=== PATIENT | female | born 1980 | race African-American/Black ===

== ENCOUNTER 2016-11-10 06:57 | Inpatient (IN) | payer MEDICAID ==
[2016-11-10] MEDS: MAGNESIUM SULFATE 40 GM PREMIX 1,000 ML IV SCH (07:40)
[2016-11-10] MEDS: LACTATED RINGER'S 1000 ML INJ 1,000 ML IV SCH ×2 (07:40→21:00)
--- NOTE | 2016-11-10 07:40 | PD ---
HPI Chief Complaint Back pain radiating to her upper thighs Date Seen: Nov 10, 2016 Time Seen: 07:34 Travel History International Travel<30 Days: No Contact w/Intl Traveler<30Days: No Known Affected Area: No History of Present Illness HPI 36-year-old female [id number] AB 3 comes in today complaining of back pain that radiated into her upper legs for the past 4 hours. He has no other complaints and denies swelling but she did have a headache earlier that was partially relief with Tylenol. Patient states that she's had uncompensated but she's had group B strep in her urine. Para: 3 : 7 : 3 History Past Medical History Medical History: Denies Significant Hx Obstetric History Obstetric History Spontaneous vaginal delivery 3, occasional hypertension during these pregnancies but none needed induction for hypertension Patient states that she had group B strep in her urine treated with clindamycin but we have no prenatals Past Surgical History Surgical History: No Previous Surgery Family History Family History: Negative Social History Alcohol Use: No Tobacco Use: No Substance Abuse: No Allergies-Medications (Allergen,Severity, Reaction): Coded Allergies: No Known Allergies (Unverified , 11/10/16) Review of Systems Except as stated in HPI: all other systems reviewed are Neg Physical Exam Narrative GENERAL: Well-nourished, well-developed patient. SKIN: Warm and dry. HEAD: Normocephalic and atraumatic. EYES: No scleral icterus. No injection or drainage. ENT: No nasal drainage noted. Mucous membranes pink. Airway patent. NECK: Supple, trachea midline. No JVD. CARDIOVASCULAR: Regular rate and rhythm without murmurs, gallops, or rubs. RESPIRATORY: Breath sounds equal bilaterally. No accessory muscle use. BREASTS: Bilateral exam showed no masses , no retractions, no nipple discharge. ABDOMEN/GI: Abdomen soft, non-tender, bowel sounds present, no rebound, no guarding Gravid to [-35] weeks size Fundal Height: [-] GENITOURINARY: External Genitalia: intact and normal in appearance BUS glands: [-Normal] Cervix: [Posterior] Dilatation: [-Fingertip] Effacement: [-50] Station: [--3] Presentation: [Vertex-] Membranes: [intact] Uterine Contractions: [-Absent] FHT's: Category: [1-] Baseline: [-140] Reactive: [Moderate-] Variability: [Moderate] Decels: [-Absent] EXTREMITIES: No cyanosis or edema. BACK: Nontender without obvious deformity. No CVA tenderness. NEUROLOGICAL: Awake and alert. Motor and sensory grossly within normal limits. Five out of 5 muscle strength in all muscle groups. Normal speech. Data Data Vital Signs Reviewed: Yes MDM Plan 36-year-old Ab3 with blood pressure of 149/129 with repeat of 164/107, and 139/118 Patient at 35 weeks gestation with possible group B strep and urine we have no prenatals at this time but her working to get them Patient will need to be admitted for a workup as well as blood pressure medication and possible magnesium sulfate Dr. Lombardo was notified Diagnosis Diagnosis: Primary Impression: 35 weeks gestation of Additional Impressions: Severe hypertension affecting Severe hypertension affecting in third trimester AMA (advanced maternal age) multigravida 35+ Federica Mcfarlane MD Nov 10, 2016 07:40
[2016-11-10] MEDS ORDERED: MAGNESIUM SULFATE 4 GM PREMIX 100 ML IV ONE (07:45)
[2016-11-10] MEDS ORDERED: LABETALOL HCL 100 MG/20 ML VIAL IV PUSH PRN ×2 (07:45→08:30)
[2016-11-10] MEDS ORDERED: CALCIUM GLUCONATE 10% 1 GM/10 ML VIAL IV PUSH PRN (07:45)
[2016-11-10] MEDS ORDERED: SODIUM CHLORIDE 0.9% FLUSH 5 ML FLUSH IV PRN (07:45)
[2016-11-10] MEDS ORDERED: LABETALOL HCL 100 MG/20 ML VIAL ONE (07:52)
[2016-11-10] MEDS ORDERED: NIFEdipine 10 MG CAP ONE (08:11)
[2016-11-10] MEDS ORDERED: NIFEdipine 10 MG CAP PO PRN ×2 (08:15→08:45)
[2016-11-10] MEDS: BETAMETHASONE SOD PHOS/ACETATE SUSP 30 MG/5 ML VIAL IM SCH (08:23)
[2016-11-10 08:39] LABS: HEMATOCRIT 31.3 % (35.0-46.0); MEAN CELL VOLUME 86.9 FL (80.0-100.0); MEAN CORPUSCULAR HEMOGLOBIN 29.4 PG (27.0-34.0); MEAN CORPUSCULAR HGB CONC 33.9 % (32.0-36.0); PLATELET COUNT 149 TH/MM3 (150-450); RED CELL DISTRIBUTION WIDTH 13.9 % (11.6-17.2); REVIEW FLAG FINAL; WHITE BLOOD COUNT 7.4 TH/MM3 (4.0-11.0)
[2016-11-10 08:55] LABS: ALT (GPT) 26 U/L (10-53); ANION GAP 12 MEQ/L (5-15); AST (GOT) 23 U/L (15-37); BICARBONATE 21.6 MEQ/L (21.0-32.0); BLOOD UREA NITROGEN 5 MG/DL (7-18); CHLORIDE 106 MEQ/L (98-107); GLOMERULAR FILTRATION RATE 173 ML/MIN (>89); POTASSIUM 3.5 MEQ/L (3.5-5.1); SODIUM (NA) 140 MEQ/L (136-145); URIC ACID 3.7 MG/DL (2.6-6.0)
[2016-11-10 08:57] LABS: ALKALINE PHOSPHATASE 150 U/L (45-117); TOTAL BILIRUBIN ADULT 0.3 MG/DL (0.2-1.0)
[2016-11-10] MEDS: SODIUM CHLORIDE 0.9% FLUSH 5 ML FLUSH IV SCH ×2 (09:00→21:00)
[2016-11-10 09:07] LABS: BLOOD, URINE NEG (NEG); COMMENT (UR) CULT NOT INDICATED; CULTURE IF INDICATED CULT NOT INDICATED; GLUCOSE,URINE NEG (NEG); KETONE, URINE NEG (NEG); MUCUS URINE FEW /lpf (OCC); NITRITE,URINE NEG (NEG); SQUAMOUS EPITHELIAL CELL URINE <1 /hpf (0-5); URINE COLOR YELLOW (YELLW/STRAW)
[2016-11-10 09:26] LABS: AMPHETAMINE, URINE NEG (NEG); BARBITURATES, URINE NEG (NEG); COCAINE, URINE NEG (NEG)
[2016-11-10] MEDS ORDERED: ACETAMINOPHEN 325 MG TAB PO ONE (21:30)
--- NOTE | 2016-11-11 02:44 | PD.OB.ANTE ---
Subjective Diagnosis: (1) Severe hypertension affecting Interval History Had KINNEY overnight, relieved with tylenol Antepartum ROS: Reports: movement normal, Denies: New complaints, Loss of fluid, Vaginal bleeding, Contractions, Other Objective Lab & Micro Results Test 11/10/16 11/10/16 07:20 07:40 Urine Color YELLOW Urine Turbidity CLEAR Urine pH 6.0 Urine Specific [place] 1.011 Urine Protein NEG mg/dL Urine Glucose (UA) NEG mg/dL Urine Ketones NEG mg/dL Urine Occult Blood NEG Urine Nitrite NEG Urine Bilirubin NEG Urine Urobilinogen LESS THAN 2.0 MG/DL Urine Leukocyte Esterase NEG Urine RBC LESS THAN 1 /hpf Urine WBC 1 /hpf Urine Squamous Epithelial <1 /hpf Cells Urine Mucus FEW /lpf Microscopic Urinalysis Comment CULT NOT INDICATED Urine Random Creatinine 66 MG/DL Urine Random Total Protein 13 MG/DL Urine Protein/Creatinine Ratio 0.20 Urine Opiates Screen NEG Urine Barbiturates Screen NEG Urine Amphetamines Screen NEG Urine Benzodiazepines Screen NEG Urine Cocaine Screen NEG Urine Cannabinoids Screen POS White Blood Count 7.4 TH/MM3 Red Blood Count 3.60 MIL/MM3 Hemoglobin 10.6 GM/DL Hematocrit 31.3 % Mean Corpuscular Volume 86.9 FL Mean Corpuscular Hemoglobin 29.4 PG Mean Corpuscular Hemoglobin 33.9 % Concent Red Cell Distribution Width 13.9 % Platelet Count 149 TH/MM3 Mean Platelet Volume 10.4 FL Sodium Level 140 MEQ/L Potassium Level 3.5 MEQ/L Chloride Level 106 MEQ/L Carbon Dioxide Level 21.6 MEQ/L Anion Gap 12 MEQ/L Blood Urea Nitrogen 5 MG/DL Creatinine 0.49 MG/DL Estimat Glomerular Filtration 173 ML/MIN Rate Random Glucose 71 MG/DL Uric Acid 3.7 MG/DL Calcium Level 9.4 MG/DL Total Bilirubin 0.3 MG/DL Aspartate Amino Transf 23 U/L (AST/SGOT) Alanine Aminotransferase 26 U/L (ALT/SGPT) Alkaline Phosphatase 150 U/L Total Protein 6.8 GM/DL Albumin 2.8 GM/DL Physical Exam GENERAL: Well-nourished, well-developed patient. CARDIOVASCULAR: Regular rate and rhythm without murmurs, gallops, or rubs. RESPIRATORY: Breath sounds equal bilaterally. No accessory muscle use. ABDOMEN/GI: Abdomen soft, non-tender. Fundus: [-] GENITOURINARY: External Genitalia: deferred FHT's: Category:I, NST reactive EXTREMITIES: No cyanosis or edema, non-tender, without signs of DVT. reflexes 2+ Assessment and Plan Assessment and Plan 36 yo with iup at 35w3d here for htn r/o pre-eclampsia BP severe on admission to triage. PT received labetalol 20mg, nifedipine, then labetalol 40mg IV. She was started on magnesium and BMS was initiated in event of imminent delivery. BP has been normal to mild range since yesterday morning. She is on labetalol 200mg bid now. [facility] lab repeat this am are stable/ normal and 24 hour urine pending. P:C 0.2 Dispo- home if normal 24 hour urine, f/u on 11/15 as scheduled. Aurelia Lombardo MD Nov 11, 2016 02:44
[2016-11-11] MEDS ORDERED: ACETAMINOPHEN 325 MG TAB PO PRN (03:30)
[2016-11-11] MEDS: MAGNESIUM SULFATE 40 GM PREMIX 1,000 ML IV SCH ×2 (03:40→23:40)
[2016-11-11 06:03] LABS: ANION GAP 11 MEQ/L (5-15); AST (GOT) 22 U/L (15-37); BICARBONATE 19.2 MEQ/L (21.0-32.0); BLOOD UREA NITROGEN 5 MG/DL (7-18); CHLORIDE 106 MEQ/L (98-107); GLOMERULAR FILTRATION RATE 173 ML/MIN (>89); POTASSIUM 3.6 MEQ/L (3.5-5.1); SODIUM (NA) 136 MEQ/L (136-145)
[2016-11-11 06:04] LABS: ALT (GPT) 25 U/L (10-53); URIC ACID 3.3 MG/DL (2.6-6.0)
[2016-11-11 06:07] LABS: ALKALINE PHOSPHATASE 155 U/L (45-117); TOTAL BILIRUBIN ADULT 0.3 MG/DL (0.2-1.0)
[2016-11-11 06:22] LABS: AUTOMATED NEUTROPHIL # 7.5 TH/MM3 (1.8-7.7); BASOPHIL % 0.2 % (0.0-2.0); EOSINOPHIL % 0.1 % (0.0-4.0); HEMO FLAGS DIFF FINAL; LYMPH % 9.4 % (9.0-44.0); LYMPHOCYTE # 0.9 TH/MM3 (1.0-4.8); MEAN CELL VOLUME 86.4 FL (80.0-100.0); MEAN CORPUSCULAR HEMOGLOBIN 29.8 PG (27.0-34.0); MEAN CORPUSCULAR HGB CONC 34.5 % (32.0-36.0); MONO % 8.3 % (0.0-8.0); PLATELET COUNT 150 TH/MM3 (150-450); RED BLOOD COUNT 3.47 MIL/MM3 (4.00-5.30); WHITE BLOOD COUNT 9.1 TH/MM3 (4.0-11.0)
[2016-11-11] MEDS: SODIUM CHLORIDE 0.9% FLUSH 5 ML FLUSH IV SCH ×2 (07:29→21:00)
[2016-11-11] MEDS: ONDANSETRON ODT 4 MG TAB PO PRN (08:02)
[2016-11-11] MEDS: BETAMETHASONE SOD PHOS/ACETATE SUSP 30 MG/5 ML VIAL IM SCH (08:47)
[2016-11-11] MEDS ORDERED: LABETALOL HCL 200 MG TAB PO ONE (09:45)
[2016-11-11] MEDS: LACTATED RINGER'S 1000 ML INJ 1,000 ML IV SCH ×2 (10:12→23:40)
[2016-11-11] MEDS ORDERED: LABE200T2 PO (15:08)
[2016-11-11 17:37] LABS: CREAT 24 TIMED 17.7 MG/DL; URINE TOTAL PROTEIN TIMED 6.3 MG/DL
[2016-11-11] MEDS: LABETALOL HCL 200 MG TAB PO SCH (20:59)
[2016-11-12] MEDS: LABETALOL HCL 200 MG TAB PO SCH ×2 (08:58→21:00)
[2016-11-12] MEDS: SODIUM CHLORIDE 0.9% FLUSH 5 ML FLUSH IV SCH ×2 (08:58→21:00)
--- NOTE | 2016-11-12 11:31 | PD.OB.ANTE ---
Subjective Diagnosis: (1) Severe hypertension affecting Interval History no le, blurry vision or RLQ pain Antepartum ROS: Reports: movement normal, Denies: New complaints, Loss of fluid, Vaginal bleeding, Contractions, Other Objective Lab & Micro Results Test 11/11/16 14:00 Urine Total Volume 24 Hours 6395 ML Urine Creatinine 24 Hour 1.13 GM/24HR Urine Total Protein 24 Hour 403 MG/24HR Physical Exam GENERAL: Well-nourished, well-developed patient. CARDIOVASCULAR: Regular rate and rhythm without murmurs, gallops, or rubs. RESPIRATORY: Breath sounds equal bilaterally. No accessory muscle use. ABDOMEN/GI: Abdomen soft, non-tender. Fundus: [-] GENITOURINARY: FHT's: Category:I, Reactive NST EXTREMITIES: No cyanosis or edema, non-tender, without signs of DVT. Assessment and Plan Problem List: (1) Severe hypertension affecting Status: Acute Assessment and Plan 36 yo with iup at 35w4d admitted with pre-eclampsia BP severe on admission to triage. PT received labetalol 20mg, nifedipine, then labetalol 40mg IV. S/p magnesium x24 hours and BMS11/10 and 11/11 for neuroprotection and lung maturity in the event that deliver was imminent. BP has been normal to mild range after admission. She is on labetalol 200mg bid. P:C 0.2. Am labs pending. 24 hour urine with 403mg of protein, ruling her in for Pre-e. She will have BPP and growth u/s tomorrow. NST reactive this morning Discussed continued inpt management, delivery when severe features present or at 37 wk Aurelia Lombardo MD Nov 12, 2016 11:30
[2016-11-12] MEDS: LACTATED RINGER'S 1000 ML INJ 1,000 ML IV SCH (13:00)
[2016-11-12 16:19] LABS: AUTOMATED NEUTROPHIL # 6.6 TH/MM3 (1.8-7.7); BASOPHIL % 0.1 % (0.0-2.0); EOSINOPHIL % 0.1 % (0.0-4.0); HEMATOCRIT 30.1 % (35.0-46.0); HEMO FLAGS DIFF FINAL; LYMPH % 15.1 % (9.0-44.0); LYMPHOCYTE # 1.3 TH/MM3 (1.0-4.8); MEAN CELL VOLUME 88.3 FL (80.0-100.0); MEAN CORPUSCULAR HEMOGLOBIN 28.8 PG (27.0-34.0); MEAN CORPUSCULAR HGB CONC 32.6 % (32.0-36.0); MONO % 10.4 % (0.0-8.0); NEUT % 74.3 % (16.0-70.0); PLATELET COUNT 147 TH/MM3 (150-450); RED BLOOD COUNT 3.41 MIL/MM3 (4.00-5.30); WHITE BLOOD COUNT 8.8 TH/MM3 (4.0-11.0)
[2016-11-12 16:36] LABS: ANION GAP 9 MEQ/L (5-15); AST (GOT) 12 U/L (15-37); BICARBONATE 23.3 MEQ/L (21.0-32.0); BLOOD UREA NITROGEN 6 MG/DL (7-18); CHLORIDE 110 MEQ/L (98-107); GLOMERULAR FILTRATION RATE 123 ML/MIN (>89); POTASSIUM 3.4 MEQ/L (3.5-5.1); SODIUM (NA) 142 MEQ/L (136-145); URIC ACID 3.6 MG/DL (2.6-6.0)
[2016-11-12 16:38] LABS: ALKALINE PHOSPHATASE 137 U/L (45-117); ALT (GPT) 20 U/L (10-53); TOTAL BILIRUBIN ADULT 0.2 MG/DL (0.2-1.0)
[2016-11-12] MEDS: MAGNESIUM SULFATE 40 GM PREMIX 1,000 ML IV SCH (16:51)
[2016-11-12] MEDS: ONDANSETRON ODT 4 MG TAB PO PRN (23:33)
== END 2016-11-13 02:05 | disposition left against medical advice (07) | DRG 781 ==
LOC: HOBED 06:57 → OBSVTOIN 08:27 → H2EA 08:27
PROVIDERS: ADMIT Obstetrics & Gynecology; ATTEND Obstetrics & Gynecology
DX: O14.93 Unspecified pre-eclampsia, third trimester (principal); O09.523 Supervision of elderly multigravida, third trimester; Z3A.35 35 weeks gestation of pregnancy
CPT/HCPCS: 59020; 80053; 80307; 81001; 82570; 84156; 84157; 84550; 85025; 85027; 96372; 96374; 96375; 96376; G0481; J0702; J3475; J7120

== ENCOUNTER 2016-11-15 02:38 | Inpatient (IN) | payer MEDICAID ==
[~2016-11-15] VITALS: Ht 157.5 cm; Wt 80.7 kg
[~2016-11-15 02:38] MED LIST: LABE200T2 PO
--- NOTE | 2016-11-15 03:29 | PD ---
HPI Chief Complaint high blood pressure and headache Date Seen: Nov 15, 2016 Time Seen: 03:22 Travel History International Travel<30 Days: No Contact w/Intl Traveler<30Days: No Known Affected Area: No History of Present Illness HPI 36-year-old female who comes in the hospital complaining of high blood pressure and a headache. Patient had been admitted last Sunday due to severe hypertension and had blood work and serial blood pressures, with a 24-hour urine protein. She left AGAINST MEDICAL ADVICE early Sunday morning due to childcare issues despite continuing with her high blood pressures. Patient denies abdominal pain, vaginal bleeding. She is having normal movement but is noticing some mild contraction activity for the past few hours. The headache started early yesterday and initially responded to Tylenol but has recurred in the evening hours. She's been able to arrange childcare and came back to the hospital. Para: 3 : 7 Miscarriage: 3 History Past Medical History Medical History: Denies Significant Hx Obstetric History Obstetric History Spontaneous vaginal delivery 3, patient did have hypertension in her previous . 2 -induced is 139 weeks and 1 was delivered at 37 weeks blood pressure reverted back to normal after each . Past Surgical History Surgical History: No Previous Surgery Family History Family History: Negative Social History Alcohol Use: No Tobacco Use: No Substance Abuse: Yes (marijuana) Allergies-Medications (Allergen,Severity, Reaction): Coded Allergies: No Known Allergies (Unverified , 11/10/16) Home Meds Active Scripts Labetalol 200 Mg [id number] Mg PO BID #60 TAB Prov:Aurelia Lombardo MD 11/11/16 Review of Systems Except as stated in HPI: all other systems reviewed are Neg Physical Exam Narrative GENERAL: Well-nourished, well-developed patient. SKIN: Warm and dry. HEAD: Normocephalic and atraumatic. EYES: No scleral icterus. No injection or drainage. ENT: No nasal drainage noted. Mucous membranes pink. Airway patent. NECK: Supple, trachea midline. No JVD. CARDIOVASCULAR: Regular rate and rhythm without murmurs, gallops, or rubs. RESPIRATORY: Breath sounds equal bilaterally. No accessory muscle use. ABDOMEN/GI: Abdomen soft, non-tender, bowel sounds present, no rebound, no guarding Gravid to [-35] weeks size Fundal Height: [-] GENITOURINARY: External Genitalia: intact and normal in appearance BUS glands: [Normal-] Cervix: [-Posterior] Dilatation: [-1] Effacement: [-0] Station: [-3-] Presentation: [Vertex-] Membranes: [intact ] Uterine Contractions: [Every 5, palpably mild-] FHT's: Category: [-1] Baseline: [-140] Reactive: [-Moderate] Variability: [-Moderate] Decels: [-Absent] EXTREMITIES: 1+ lower extremity edema BACK: Nontender without obvious deformity. No CVA tenderness. NEUROLOGICAL: Awake and alert. Motor and sensory grossly within normal limits. Five out of 5 muscle strength in all muscle groups. Normal speech. Data Data Vital Signs Reviewed: Yes Labs Last blood work patient had was on November 12 and the pertinent labs include platelets of 147, creatinine 0.66, a uric acid of 3.6, AST of 12, and a 24-hour urine protein of 403 mg 24 hours MDM Plan 36-year-old female at 36 weeks gestation with hypertension in the severe range, previously admitted on the of this month and patient left AGAINST MEDICAL ADVICE early on the due to childcare issues Group B strep positive in her urine Start magnesium sulfate and labetolol Sonogram for the morning Diagnosis Diagnosis: Primary Impression: 36 weeks gestation of Additional Impressions: Severe hypertension complicating Group beta Strep positive Federica Mcfarlane MD Nov 15, 2016 03:29
[2016-11-15] MEDS ORDERED: MAGNESIUM SULFATE 4 GM PREMIX 100 ML ONE (03:41)
[2016-11-15] MEDS ORDERED: MAGNESIUM SULFATE 40 GM PREMIX 1,000 ML ONE (03:41)
[2016-11-15] MEDS ORDERED: LABETALOL HCL 100 MG/20 ML VIAL ONE (03:42)
[2016-11-15] MEDS ORDERED: MAGNESIUM SULFATE 4 GM PREMIX 100 ML IV ONE (03:45)
[2016-11-15] MEDS ORDERED: BETAMETHASONE SOD PHOS/ACETATE SUSP 30 MG/5 ML VIAL IM SCH (03:45)
[2016-11-15] MEDS ORDERED: CALCIUM GLUCONATE 10% 1 GM/10 ML VIAL IV PUSH PRN (03:45)
[2016-11-15] MEDS ORDERED: SODIUM CHLORIDE 0.9% FLUSH 5 ML FLUSH IV PRN (03:45)
[2016-11-15] MEDS ORDERED: LABETALOL HCL 100 MG/20 ML VIAL IV PUSH PRN (03:45)
[2016-11-15 04:00] LABS: HEMATOCRIT 30.2 % (35.0-46.0); MEAN CELL VOLUME 86.2 FL (80.0-100.0); MEAN CORPUSCULAR HEMOGLOBIN 28.6 PG (27.0-34.0); MEAN CORPUSCULAR HGB CONC 33.2 % (32.0-36.0); PLATELET COUNT 151 TH/MM3 (150-450); RED CELL DISTRIBUTION WIDTH 14.3 % (11.6-17.2); REVIEW FLAG FINAL; WHITE BLOOD COUNT 9.8 TH/MM3 (4.0-11.0)
[2016-11-15 04:03] LABS: AMPHETAMINE, URINE NEG (NEG); BARBITURATES, URINE NEG (NEG); COCAINE, URINE NEG (NEG)
[2016-11-15] MEDS: ONDANSETRON HCL 4 MG/2 ML VIAL IV PRN (04:13)
[2016-11-15] MEDS: LACTATED RINGER'S 1000 ML INJ 1,000 ML IV SCH ×2 (04:13→19:00)
[2016-11-15 04:20] LABS: ANION GAP 7 MEQ/L (5-15); AST (GOT) 11 U/L (15-37); BICARBONATE 23.3 MEQ/L (21.0-32.0); BLOOD UREA NITROGEN 8 MG/DL (7-18); CHLORIDE 109 MEQ/L (98-107); GLOMERULAR FILTRATION RATE 155 ML/MIN (>89); POTASSIUM 3.8 MEQ/L (3.5-5.1); SODIUM (NA) 139 MEQ/L (136-145)
[2016-11-15] MEDS: MAGNESIUM SULFATE 40 GM PREMIX 1,000 ML IV SCH (04:20)
[2016-11-15 04:24] LABS: ALKALINE PHOSPHATASE 153 U/L (45-117); ALT (GPT) 20 U/L (10-53); TOTAL BILIRUBIN ADULT 0.3 MG/DL (0.2-1.0); URIC ACID 3.9 MG/DL (2.6-6.0)
[2016-11-15] MEDS ORDERED: CLIN1CAP6 PO (04:25)
[2016-11-15 04:29] LABS: BLOOD, URINE SMALL (NEG); GLUCOSE,URINE NEG (NEG); KETONE, URINE NEG (NEG); NITRITE,URINE NEG (NEG); PH, URINE 6.5 (5.0-8.5); URINE COLOR YELLOW (YELLW/STRAW)
[2016-11-15 04:32] LABS: BACTERIA, URINE RARE /hpf; COMMENT (UR) CULTURE INDICATED; CULTURE IF INDICATED CULTURE INDICATED; SQUAMOUS EPITHELIAL CELL URINE 2 /hpf (0-5); TRANSITIONAL EPI CELLS, URINE <1 /hpf
[2016-11-15] MEDS: SODIUM CHLORIDE 0.9% FLUSH 5 ML FLUSH IV SCH (09:00)
[2016-11-15] MEDS: MULTIVIT/MIN/PREN/FOL AC/IRON PRENATAL TAB PO SCH (09:08)
--- NOTE | 2016-11-15 09:30 | PD.OB.ANTE ---
Subjective Diagnosis: (1) Severe hypertension affecting in third trimester Diagnosis: Principal (2) 36 weeks gestation of Diagnosis: Secondary (3) AMA (advanced maternal age) multigravida 35+ Diagnosis: Secondary Interval History Pt states her headache has gone from 8/10 to 3/10 and at this time she denies any RUQ pain, blurred vision, spots in vision, or edema. Feeling baby move, irregular contractions "just Shay Hernandez." Denies nausea/vomiting. Only pain is from headache, 3/10 currently. Antepartum ROS: Reports: movement normal, Denies: New complaints, Loss of fluid, Vaginal bleeding, Contractions, Other Objective Lab & Micro Results Test 11/15/16 03:40 White Blood Count 9.8 TH/MM3 Red Blood Count 3.50 MIL/MM3 Hemoglobin 10.0 GM/DL Hematocrit 30.2 % Mean Corpuscular Volume 86.2 FL Mean Corpuscular Hemoglobin 28.6 PG Mean Corpuscular Hemoglobin 33.2 % Concent Red Cell Distribution Width 14.3 % Platelet Count 151 TH/MM3 Mean Platelet Volume 10.0 FL Urine Color YELLOW Urine Turbidity CLEAR Urine pH 6.5 Urine Specific [place] 1.011 Urine Protein NEG mg/dL Urine Glucose (UA) NEG mg/dL Urine Ketones NEG mg/dL Urine Occult Blood SMALL Urine Nitrite NEG Urine Bilirubin NEG Urine Urobilinogen 0.2 MG/DL Urine Leukocyte Esterase SMALL Urine RBC 6 /hpf Urine WBC 11 /hpf Urine Squamous Epithelial 2 /hpf Cells Urine Transitional Epithelial <1 /hpf Cells Urine Bacteria RARE /hpf Microscopic Urinalysis Comment CULTURE INDICATED Sodium Level 139 MEQ/L Potassium Level 3.8 MEQ/L Chloride Level 109 MEQ/L Carbon Dioxide Level 23.3 MEQ/L Anion Gap 7 MEQ/L Blood Urea Nitrogen 8 MG/DL Creatinine 0.54 MG/DL Estimat Glomerular Filtration 155 ML/MIN Rate Random Glucose 77 MG/DL Uric Acid 3.9 MG/DL Calcium Level 9.2 MG/DL Total Bilirubin 0.3 MG/DL Aspartate Amino Transf 11 U/L (AST/SGOT) Alanine Aminotransferase 20 U/L (ALT/SGPT) Alkaline Phosphatase 153 U/L Total Protein 6.4 GM/DL Albumin 2.7 GM/DL Urine Opiates Screen NEG Urine Barbiturates Screen NEG Urine Amphetamines Screen NEG Urine Benzodiazepines Screen NEG Urine Cocaine Screen NEG Urine Cannabinoids Screen POS Blood Type O NEGATIVE Antibody Screen NEGATIVE Date/Time Procedure Status Source Growth 11/15/16 03:40 Urine Culture Received Urine Clean Catch Pending Physical Exam GENERAL: Well-nourished, well-developed patient. Resting in bed. CARDIOVASCULAR: Regular rate and rhythm without murmurs, gallops, or rubs. RESPIRATORY: Breath sounds equal bilaterally. No accessory muscle use. ABDOMEN/GI: Abdomen soft, non-tender. Fundus:c/w dates GENITOURINARY: External Genitalia: deferred FHT's: Category: [I] Baseline: [130s] Reactive: [y] Variability: [y] Decels: [n] EXTREMITIES: No cyanosis or edema, non-tender, without signs of DVT. Assessment and Plan Problem List: (1) Severe hypertension affecting in third trimester Status: Acute (2) 36 weeks gestation of Status: Acute (3) AMA (advanced maternal age) multigravida 35+ Status: Acute Assessment and Plan 36 yo at 36w0d by 1st trimester sonogram c/w LMP, admit for severe HTN/ PreEclampsia 1) Severe HTN in 3rd trimester/PreEclampsia: repeat 24h urine ordered, labs wnl this AM, pt presented with severe symptoms but those have subsided since admission and bedrest; d/w pt this morning that if severe symptoms return while on bedrest or if pressures becomes severe would plan labor induction; ok for pt to eat for now, plan repeat labs daily, will f/u symptoms closely 2) AMA: normal anatomy scan (female) cfDNA and msAFP wnl 3) h/o GC & CT this , JACE neg 4) SC trait +, FOB negative per pt report 5) GBS + for PCN ppx in labor 6) MJ + throughout 7) abnl 1h GTT, 3h wnl 8) thrombocytopenia: plts 142 on 08/16/16, repeat 10/16/16 plts 142 9) h/o SAB x 2, EAB x 1 10) status: for growth scan today at OB Dx; Cat I tracing currently, vertex, female Denise Leavitt MD Nov 15, 2016 09:30
[2016-11-15] MEDS ORDERED: FAMOTIDINE 20 MG/2 ML VIAL IV PUSH ONE (11:15)
[2016-11-15] MEDS ORDERED: ACETAMIN 325 MG/BUTALBITAL 50 MG/CAFFEINE 40 MG TAB PO PRN (14:45)
[2016-11-15] MEDS ORDERED: CALCIUM CARBONATE 500 MG CHEWABLE TAB CHEW ONE (14:45)
[2016-11-15] MEDS ORDERED: ACETAMINOPHEN 500 MG CPLT PO ONE (14:45)
[2016-11-15] MEDS ORDERED: SODIUM CHLOR 0.9% 1000 ML INJ 1,000 ML OTHER PRN (15:05)
--- NOTE | 2016-11-15 15:05 | HHI.PR ---
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 GI symptoms have started and severe headache has returned. At this time based on severity of symptoms and clinical worsening, will start labor induction. Plan cervidil x 12 hours then pitocin augmentation as needed. Orders placed, nursing aware, d/w pt earlier today. Denise Leavitt MD Nov 15, 2016 15:05
[2016-11-15] MEDS ORDERED: LIDOCAINE HCL 1% 50 ML VIAL I-DERMAL PRN (15:15)
[2016-11-15] MEDS ORDERED: CITRIC ACID-SODIUM CITRATE LIQ 30 ML UDC PO SCH (15:15)
[2016-11-15] MEDS ORDERED: ONDANSETRON HCL 4 MG/2 ML VIAL IV PRN (15:15)
[2016-11-15] MEDS ORDERED: LIDOCAINE HCL 1% 50 ML VIAL INFIL PRN (15:15)
[2016-11-15] MEDS ORDERED: DINOPROSTONE 10 MG VAG INSERT VAGINAL ONE ×2 (15:15)
[2016-11-15] MEDS ORDERED: OXYTOCIN 30 UNITS-500ML PREMIX 500 ML IV ONE (15:15)
[2016-11-15] MEDS ORDERED: MINERAL OIL 10 ML VIAL TOPICAL PRN (15:15)
[2016-11-15] MEDS ORDERED: PENICILLIN G POTASSIUM INJ 5,000,000 UNITS in SODIUM CHLORIDE 0.9% INJ 100 ML IV ONE ×2 (16:00→20:00)
[2016-11-15] MEDS ORDERED: PENICILLIN G POTASSIUM INJ 2,500,000 UNITS in SODIUM CHLORIDE 0.9% INJ 100 ML IV SCH (20:00)
[2016-11-16] MEDS ORDERED: PENICILLIN G POTASSIUM INJ 2,500,000 UNITS in SODIUM CHLORIDE 0.9% INJ 100 ML IV SCH ×2
[2016-11-16] MEDS ORDERED: OXYTOCIN 30 UNITS-500ML PREMIX 500 ML IV SCH (06:00)
[2016-11-16] MEDS: MAGNESIUM SULFATE 40 GM PREMIX 1,000 ML IV SCH (07:05)
[2016-11-16] MEDS ORDERED: hydrALAZINE HCL 20 MG/ML VIAL ONE (08:26)
[2016-11-16] MEDS: hydrALAZINE HCL 20 MG/ML VIAL IV PUSH SCH ×2 (08:30→11:08)
--- NOTE | 2016-11-16 08:44 | PD.LABORPN ---
Subjective Subjective no KINNEY, Nausea or vomiting no blurred vision juvencio moderately eery 4 minutes Objective Objective 1-2/thick/soft anterior -1 strip category 1 Assessment/Plan Problem List: (1) Severe hypertension affecting in third trimester (2) 36 weeks gestation of (3) AMA (advanced maternal age) multigravida 35+ Assessment and Plan 36 + week with pre eclampsia with severe features BPs in treatable range--receiving apresoline 5 mg now arom clear andcopious platelets fine can have epidural pelvis proven and anticipate Shi Desai MD Nov 16, 2016 08:44
[2016-11-16] MEDS ORDERED: ePHEDrine/NS 25 MG/5 ML SYR ONE (08:49)
[2016-11-16] MEDS ORDERED: fentaNYL 2MCG-BUPIV 0.125% INJ 100 ML ONE ×3 (08:49→20:20)
[2016-11-16] MEDS: SODIUM CHLORIDE 0.9% FLUSH 5 ML FLUSH IV SCH (09:00)
[2016-11-16] MEDS: MULTIVIT/MIN/PREN/FOL AC/IRON PRENATAL TAB PO SCH (09:00)
[2016-11-16] MEDS ORDERED: PENICILLIN G POTASSIUM INJ 5,000,000 UNITS in SODIUM CHLORIDE 0.9% INJ 100 ML IV ONE (10:00)
[2016-11-16] MEDS: ONDANSETRON HCL 4 MG/2 ML VIAL IV PRN (10:17)
--- NOTE | 2016-11-16 10:47 | PD.LABORPN ---
Subjective Subjective Having some reflux no KINNEY Objective Vital Signs Vital Signs Date Time Temp Pulse Resp B/P Pulse Ox O2 Delivery O2 Flow Rate FiO2 11/16/16 09:15 18 Objective 3-4/80/-2 strip category 1 Bps 100's diastolic on MgSO4 Assessment/Plan Problem List: (1) Severe hypertension affecting in third trimester (2) 36 weeks gestation of (3) AMA (advanced maternal age) multigravida 35+ Assessment and Plan has epidural making change multip who should labor reasonably quickly anticipate Shi Desai MD Nov 16, 2016 10:47
[2016-11-16] MEDS ORDERED: CALCIUM CARBONATE 500 MG CHEWABLE TAB CHEW ONE (11:15)
[2016-11-16] MEDS: PENICILLIN G POTASSIUM INJ 2,500,000 UNITS in SODIUM CHLORIDE 0.9% INJ 100 ML IV SCH ×2 (17:36→21:53)
[2016-11-17] VITALS (35 sets, daily range): BP systolic 127–169; BP diastolic 73–114; PULSE 84–108; RESP 16–20; TEMP 97.9–98.7; O2SAT 100
[2016-11-17] MEDS ORDERED: fentaNYL 2MCG-BUPIV 0.125% INJ 100 ML ONE ×2 (01:59→07:56)
[2016-11-17] MEDS: PENICILLIN G POTASSIUM INJ 2,500,000 UNITS in SODIUM CHLORIDE 0.9% INJ 100 ML IV SCH ×5 (02:03→18:00)
[2016-11-17] MEDS: MAGNESIUM SULFATE 40 GM PREMIX 1,000 ML IV SCH (02:30)
[2016-11-17] MEDS ORDERED: diphenhydrAMINE HCL 50 MG/ML VIAL ONE (05:04)
[2016-11-17] MEDS ORDERED: diphenhydrAMINE HCL 50 MG/ML VIAL IV PUSH ONE (05:15)
[2016-11-17] MEDS: MULTIVIT/MIN/PREN/FOL AC/IRON PRENATAL TAB PO SCH (07:10)
--- NOTE | 2016-11-17 07:54 | PD.LABORPN ---
Subjective Subjective comfortable after epidural redone knee chest and other positions throughout night to see if infant will descend UCs not felt but palpate strong Objective Vital Signs Vital Signs Date Time Temp Pulse Resp B/P Pulse Ox O2 Delivery O2 Flow Rate FiO2 11/17/16 02:03 18 Objective 8-9/80% -1 station FINALLY strip category 1 still on MgSO4 no evidence of chorio anticipate soon Assessment/Plan Problem List: (1) Severe hypertension affecting in third trimester (2) 36 weeks gestation of (3) AMA (advanced maternal age) multigravida 35+ Shi Desai MD Nov 17, 2016 07:54
[2016-11-17] MEDS ORDERED: MAGNESIUM SULFATE 40 GM PREMIX 1,000 ML IV SCH (08:40)
--- NOTE | 2016-11-17 08:40 | PD.OB.DELI ---
Anesthesia: Epidural Episiotomy: None Vaginal Delivery: Normal Presentation: Occiput anterior Nuchal Cord: None Delayed cord clamping (45 sec): Yes Infant: Female One Minute : 8 Five Minute : 8 Weight: 7 Placenta: Spontaneous delivery Laceration: No lacerations Shi Desai MD Nov 17, 2016 08:40
[2016-11-17] MEDS ORDERED: CALCIUM GLUCONATE 10% 1 GM/10 ML VIAL IV PUSH PRN (08:45)
[2016-11-17] MEDS ORDERED: ZOLPIDEM TARTRATE 5 MG TAB PO PRN (08:45)
[2016-11-17] MEDS ORDERED: OXYTOCIN 30 UNITS-500ML PREMIX 500 ML IV SCH (08:45)
[2016-11-17] MEDS ORDERED: SODIUM CHLORIDE 0.9% FLUSH 5 ML FLUSH IV PRN (08:45)
[2016-11-17] MEDS ORDERED: ONDANSETRON ODT 4 MG TAB PO PRN (08:45)
[2016-11-17] MEDS ORDERED: WITCH HAZEL 50%/GLYCERIN 12.5% 40 PAD JAR TOPICAL PRN (08:45)
[2016-11-17] MEDS ORDERED: SODIUM CHLORIDE 0.9% FLUSH 10 ML FLUSH IV FLUSH PRN (08:45)
[2016-11-17] MEDS ORDERED: BENZOCAINE 20% TOPICAL SPRAY 60 ML CAN TOPICAL PRN (08:45)
[2016-11-17] MEDS ORDERED: DOCUSATE SODIUM 50 MG/SENNA 8.6 MG TAB PO PRN (08:45)
[2016-11-17] MEDS ORDERED: ALUMINUM/MAGNESIUM/SIMETH 30 ML CUP PO PRN (08:45)
[2016-11-17] MEDS ORDERED: NIFEdipine 10 MG CAP PO PRN (08:45)
[2016-11-17] MEDS ORDERED: ePHEDrine/NS 25 MG/5 ML SYR IV PRN (09:00)
[2016-11-17] MEDS ORDERED: DO NOT ADMINISTER ANTICOAGULANTS PRN (09:00)
[2016-11-17] MEDS ORDERED: SODIUM CHLORIDE 0.9% FLUSH 5 ML FLUSH IV SCH (09:00)
[2016-11-17] MEDS: SODIUM CHLORIDE 0.9% FLUSH 10 ML FLUSH IV FLUSH SCH ×2 (09:00→21:00)
[2016-11-17] MEDS ORDERED: NO SYSTEM NARCOTICS PRN (09:00)
[2016-11-17] MEDS ORDERED: fentaNYL 2MCG-BUPIV 0.125% 100 ML EPIDURAL SCH (09:00)
[2016-11-17] MEDS: LACTATED RINGER'S 1000 ML INJ 1,000 ML IV SCH ×2 (09:56→20:20)
[2016-11-17] MEDS: IBUPROFEN 600 MG TAB PO PRN ×2 (13:42→22:45)
[2016-11-17] MEDS ORDERED: MEASLES, MUMPS, RUBELLA VACCINE 0.5 ML VIAL SQ ONE (16:00)
[2016-11-17] MEDS ORDERED: DIPHTH/TETANUS/ACEL PERTUSSIS (BOOSTER) 0.5 ML VIAL/PFS IM ONE (16:00)
[2016-11-18] VITALS (106 sets, daily range): BP systolic 112–160; BP diastolic 66–104; PULSE 73–115; RESP 16–18; TEMP 97.8–99.4; O2SAT 95–100
[2016-11-18] MEDS: MAGNESIUM SULFATE 40 GM PREMIX 1,000 ML IV SCH (01:18)
[2016-11-18 07:19] LABS: HEMATOCRIT 31.7 % (35.0-46.0); MEAN CELL VOLUME 86.6 FL (80.0-100.0); MEAN CORPUSCULAR HGB CONC 33.5 % (32.0-36.0); PLATELET COUNT 158 TH/MM3 (150-450); RED BLOOD COUNT 3.66 MIL/MM3 (4.00-5.30); RED CELL DISTRIBUTION WIDTH 14.7 % (11.6-17.2); REVIEW FLAG FINAL; WHITE BLOOD COUNT 14.4 TH/MM3 (4.0-11.0)
[2016-11-18 07:39] LABS: ALT (GPT) 15 U/L (10-53); ANION GAP 7 MEQ/L (5-15); AST (GOT) 13 U/L (15-37); BICARBONATE 25.9 MEQ/L (21.0-32.0); BLOOD UREA NITROGEN 4 MG/DL (7-18); CHLORIDE 105 MEQ/L (98-107); GLOMERULAR FILTRATION RATE 121 ML/MIN (>89); POTASSIUM 4.4 MEQ/L (3.5-5.1); SODIUM (NA) 138 MEQ/L (136-145); URIC ACID 3.7 MG/DL (2.6-6.0)
[2016-11-18 07:42] LABS: ALKALINE PHOSPHATASE 134 U/L (45-117); TOTAL BILIRUBIN ADULT 0.3 MG/DL (0.2-1.0)
[2016-11-18] MEDS: MULTIVIT/MIN/PREN/FOL AC/IRON PRENATAL TAB PO SCH (07:50)
[2016-11-18] MEDS: IBUPROFEN 600 MG TAB PO PRN ×3 (07:50→21:31)
[2016-11-18] MEDS: SODIUM CHLORIDE 0.9% FLUSH 10 ML FLUSH IV FLUSH SCH (07:50)
[2016-11-18] MEDS ORDERED: NIFEdipine 10 MG CAP ONE (08:05)
[2016-11-18] MEDS ORDERED: NIFEdipine 20 MG CAP PO PRN (09:00)
[2016-11-18] MEDS ORDERED: NIFEdipine 10 MG CAP PO ONE (09:00)
[2016-11-18] MEDS: PENICILLIN G POTASSIUM INJ 2,500,000 UNITS in SODIUM CHLORIDE 0.9% INJ 100 ML IV SCH (10:00)
[2016-11-18 10:30] LABS: BATH SALTS (MDPV) UR NEG (NEG); ECSTASY (MDMA) UR NEG (NEG); GABAPENTIN UR NEG (NEG); HEROIN (6-ACETYLMORPHINE) UR NEG (NEG); HYDROMORPHONE U NEG (NEG); K2 SPICE UR NEG (NEG); OBMETHADONE UR NEG (NEG); OXYCODONE (PERCODAN) NEG (NEG); PHENCYCLIDINE URINE NEG (NEG)
[2016-11-18] MEDS: LACTATED RINGER'S 1000 ML INJ 1,000 ML IV SCH (11:20)
--- NOTE | 2016-11-18 11:28 | HHI.OB ---
Subjective Post Day: 1 Remarks off Mag, got 2 doses of po procardia, fi=851/66, no KINNEY, no BV, no CP Objective Vitals/I&O Vital Signs Date Time Temp Pulse Resp B/P Pulse Ox O2 Delivery O2 Flow Rate FiO2 11/18/16 11:20 106 118/67 11/18/16 11:00 111 112/66 11/18/16 10:47 115 126/83 11/18/16 09:40 113 146/92 11/18/16 09:23 16 11/18/16 09:20 105 11/18/16 09:11 108 141/88 11/18/16 08:27 97 150/104 11/18/16 07:55 84 160/102 11/18/16 07:50 95 100 11/18/16 07:45 91 100 11/18/16 07:40 91 100 11/18/16 07:40 87 11/18/16 07:38 100 11/18/16 07:37 96 11/18/16 07:36 16 11/18/16 07:35 98.1 11/18/16 06:25 82 100 11/18/16 06:20 18 11/18/16 06:20 89 96 11/18/16 06:15 83 99 11/18/16 06:10 85 99 11/18/16 06:05 85 99 11/18/16 06:01 78 140/90 11/18/16 06:00 83 100 11/18/16 05:55 78 100 11/18/16 05:50 88 95 11/18/16 05:45 89 100 11/18/16 05:40 89 100 11/18/16 05:35 87 100 11/18/16 05:30 94 99 11/18/16 05:25 84 100 11/18/16 05:20 87 100 11/18/16 05:15 90 99 11/18/16 05:10 91 100 11/18/16 05:05 89 100 11/18/16 05:04 16 11/18/16 05:00 89 11/18/16 05:00 86 148/81 99 11/18/16 05:00 18 11/18/16 04:55 88 100 11/18/16 04:50 85 98 11/18/16 04:45 82 99 11/18/16 04:40 83 99 11/18/16 04:35 82 99 11/18/16 04:30 81 100 11/18/16 04:25 79 100 11/18/16 04:20 80 100 11/18/16 04:15 73 100 11/18/16 04:10 80 100 11/18/16 04:05 90 99 11/18/16 04:01 18 11/18/16 04:00 16 11/18/16 04:00 84 11/18/16 04:00 83 150/95 99 11/18/16 03:55 82 100 11/18/16 03:50 91 100 11/18/16 03:45 84 100 11/18/16 03:40 89 100 11/18/16 03:35 89 100 11/18/16 03:30 100 100 11/18/16 03:25 89 100 11/18/16 03:20 91 99 11/18/16 03:15 81 100 11/18/16 03:12 16 11/18/16 03:10 95 100 11/18/16 03:05 81 100 11/18/16 03:01 80 138/87 11/18/16 03:00 97.8 11/18/16 03:00 99 11/18/16 03:00 84 11/18/16 02:55 83 100 11/18/16 02:50 84 99 11/18/16 02:45 80 100 11/18/16 02:40 97 100 11/18/16 02:35 82 99 11/18/16 02:30 89 99 11/18/16 02:25 84 11/18/16 02:25 99 11/18/16 02:20 82 100 11/18/16 02:15 99 100 11/18/16 02:11 16 11/18/16 02:10 89 100 11/18/16 02:05 86 100 11/18/16 02:00 96 146/88 98 11/18/16 02:00 88 11/18/16 01:55 98 100 11/18/16 01:50 82 99 11/18/16 01:45 83 99 11/18/16 01:40 84 99 11/18/16 01:35 85 99 11/18/16 01:30 84 99 11/18/16 01:25 85 99 11/18/16 01:20 84 99 11/18/16 01:15 83 99 11/18/16 01:10 85 98 11/18/16 01:09 16 11/18/16 01:05 84 99 11/18/16 01:00 89 141/96 99 11/18/16 01:00 90 11/18/16 00:55 103 100 11/18/16 00:50 100 99 11/18/16 00:45 104 96 11/18/16 00:40 93 99 11/18/16 00:35 107 100 11/18/16 00:30 102 97 11/18/16 00:25 91 99 11/18/16 00:20 92 97 11/18/16 00:15 90 98 11/18/16 00:10 89 98 11/18/16 00:05 94 100 11/18/16 00:05 94 100 11/18/16 00:02 16 11/18/16 00:02 16 11/18/16 00:00 98.3 11/18/16 00:00 100 139/94 100 11/18/16 00:00 92 11/18/16 00:00 139/94 100 11/17/16 23:55 98 100 11/17/16 23:51 18 11/17/16 23:49 92 136/91 11/17/16 23:45 16 11/17/16 23:24 87 157/96 11/17/16 22:00 88 157/101 11/17/16 20:51 20 11/17/16 20:49 94 160/94 11/17/16 20:07 98.6 92 142/98 11/17/16 20:07 18 11/17/16 18:34 84 18 153/94 11/17/16 17:56 17 11/17/16 17:35 95 127/87 11/17/16 17:30 17 11/17/16 16:35 93 142/90 11/17/16 16:30 17 11/17/16 15:39 103 139/96 11/17/16 15:37 103 146/107 11/17/16 15:30 97.9 18 11/17/16 13:42 94 149/96 11/17/16 12:49 108 135/94 11/17/16 12:45 98.5 18 11/17/16 12:00 103 137/81 11/17/16 11:30 108 145/85 Objective Remarks GENERAL: Well-nourished, well-developed patient. CARDIOVASCULAR: Regular rate and rhythm without murmurs, gallops, or rubs. RESPIRATORY: Breath sounds equal bilaterally. No accessory muscle use. ABDOMEN/GI: Abdomen soft, non-tender. Fundus: Firm, non-tender at umbilicus. GENITOURINARY: Light to moderate bleeding. EXTREMITIES: No cyanosis or edema, non-tender, without signs of DVT. Medications and IVs Current Medications Medications (Trade) Dose Ordered Sig/Marcio Route Start Time Stop Time Status Last Admin (Magnesium Sulfate 40 Gm Premix) 1,000 ml @ 50 mls/hr Q20H IV 11/15/16 03:41 11/18/16 01:18 (Zofran Inj) 4 mg Q6H PRN IV 11/15/16 03:45 11/16/16 10:17 Prenat Multivit/ [place]/Iron/Folic Ac 1 tab 1 tab DAILY PO 11/15/16 09:00 11/15/16 09:08 (Pitocin 30 Units-NS 500 ml Premix) 500 ml @ 0 mls/hr TITRATE IV 11/16/16 06:00 11/16/16 07:08 (fentaNYL INJ) 50 mcg Q1H PRN IV PUSH 11/15/16 15:15 (fentaNYL INJ) 100 mcg Q1H PRN IV PUSH 11/15/16 15:15 Mineral Oil 10 ml 10 ml UNSCH PRN TOPICAL 11/15/16 15:15 (Pfizerpen-G Inj/ NS Inj) 100 ml @ 200 mls/hr Q4H IV 11/16/16 14:00 11/17/16 05:52 (NS Flush) 2 ml BID IV FLUSH 11/17/16 09:00 (NS Flush) 2 ml UNSCH PRN IV FLUSH 11/17/16 08:45 (Tylenol) 650 mg Q4H PRN PO 11/17/16 08:45 (Motrin) 600 mg Q6H PRN PO 11/17/16 08:45 11/18/16 07:50 (Americaine 20% Top Spr) 1 spray Q4H PRN TOPICAL 11/17/16 08:45 (Tucks Pads) 1 applic QID PRN TOPICAL 11/17/16 08:45 11/17/16 18:00 (Janett-Colace) 2 tab Q12H PRN PO 11/17/16 08:45 11/17/16 18:00 (Ambien) 5 mg HS PRN PO 11/17/16 08:45 (Mag-Al Plus Susp Liq) 15 ml Q8H PRN PO 11/17/16 08:45 Ondansetron HCl 4 mg 4 mg Q6H PRN PO 11/17/16 08:45 (Lr 1000 ml Inj) 1,000 ml @ 75 mls/hr [id number] IV 11/17/16 08:40 11/17/16 20:20 Calcium Gluconate 1 gm 1 gm UNSCH PRN IV PUSH 11/17/16 08:45 (fentaNYL 2MCG-BUPIV 0.125% INJ) 100 ml @ 0 mls/hr TITRATE EPIDURAL 11/17/16 09:00 Assessment/Plan Problem List: (1) Severe hypertension affecting in third trimester (2) 36 weeks gestation of (3) AMA (advanced maternal age) multigravida 35+ (4) Vaginal delivery Assessment and Plan 36 yo at 36w0d by 1st trimester sonogram c/w LMP, s/p PPD #1 for severe HTN/PreEclampsia 1) Severe HTN in 3rd trimester/PreEclampsia: labs wnl this AM 2) AMA: normal anatomy scan (female) cfDNA and msAFP wnl 3) h/o GC & CT this , JACE neg 4) SC trait +, FOB negative per pt report 5) GBS + for PCN ppx in labor 6) MJ + throughout 7) abnl 1h GTT, 3h wnl 8) thrombocytopenia: plts 142 on 08/16/16, repeat 10/16/16 plts 142 9) h/o SAB x 2, EAB x 1 10) start procardia XL 30 Discharge Planning routine Attending Attestation pt seen by Marie Womack MD Nov 18, 2016 11:28
[2016-11-19] MEDS: ACETAMINOPHEN 325 MG TAB PO PRN ×2 (01:27→08:35)
[2016-11-19 08:00] VITALS: BP 147/93; PULSE 83; RESP 18; TEMP 97.8
[2016-11-19] MEDS: IBUPROFEN 600 MG TAB PO PRN (08:34)
[2016-11-19] MEDS ORDERED: NIFEdipine 30 MG SUSTAINED RELEASE TAB PO SCH (09:00)
--- NOTE | 2016-11-19 09:58 | HHI.OB ---
Subjective Post Day: 2 Remarks no KINNEY, no BV, no CP, BPs improving Objective Vitals/I&O Vital Signs Date Time Temp Pulse Resp B/P Pulse Ox O2 Delivery O2 Flow Rate FiO2 11/19/16 08:00 97.8 83 18 147/93 11/18/16 19:37 99.4 86 16 156/96 11/18/16 13:00 101 16 121/84 11/18/16 13:00 98.2 100 11/18/16 11:31 111 18 127/81 11/18/16 11:30 98.2 11/18/16 11:20 106 118/67 11/18/16 11:00 111 112/66 11/18/16 10:47 115 126/83 Objective Remarks GENERAL: Well-nourished, well-developed patient. CARDIOVASCULAR: Regular rate and rhythm without murmurs, gallops, or rubs. RESPIRATORY: Breath sounds equal bilaterally. No accessory muscle use. ABDOMEN/GI: Abdomen soft, non-tender. Fundus: Firm, non-tender at umbilicus. GENITOURINARY: Light to moderate bleeding. EXTREMITIES: No cyanosis or edema, non-tender, without signs of DVT. Medications and IVs Current Medications Medications (Trade) Dose Ordered Sig/Marcio Route Start Time Stop Time Status Last Admin (NS Flush) 2 ml BID IV FLUSH 11/17/16 09:00 (NS Flush) 2 ml UNSCH PRN IV FLUSH 11/17/16 08:45 (Tylenol) 650 mg Q4H PRN PO 11/17/16 08:45 11/19/16 08:35 (Motrin) 600 mg Q6H PRN PO 11/17/16 08:45 11/19/16 08:34 (Americaine 20% Top Spr) 1 spray Q4H PRN TOPICAL 11/17/16 08:45 (Tucks Pads) 1 applic QID PRN TOPICAL 11/17/16 08:45 11/17/16 18:00 (Janett-Colace) 2 tab Q12H PRN PO 11/17/16 08:45 11/17/16 18:00 (Ambien) 5 mg HS PRN PO 11/17/16 08:45 (Mag-Al Plus Susp Liq) 15 ml Q8H PRN PO 11/17/16 08:45 (Zofran Odt) 4 mg Q6H PRN PO 11/17/16 08:45 (Procardia Xl) 30 mg DAILY PO 11/19/16 09:00 11/19/16 08:34 Assessment/Plan Problem List: (1) Severe hypertension affecting in third trimester (2) 36 weeks gestation of (3) AMA (advanced maternal age) multigravida 35+ (4) Vaginal delivery Assessment and Plan 36 yo at 36w0d by 1st trimester sonogram c/w LMP, s/p PPD #1 for severe HTN/PreEclampsia 1) Severe HTN in 3rd trimester/PreEclampsia 2) AMA: normal anatomy scan (female) cfDNA and msAFP wnl 3) h/o GC & CT this , JACE neg 4) SC trait +, FOB negative per pt report 5) GBS + for PCN ppx in labor 6) MJ + throughout 7) abnl 1h GTT, 3h wnl 8) thrombocytopenia: plts 142 on 08/16/16, repeat 10/16/16 plts 142 9) h/o SAB x 2, EAB x 1 10) on procardia XL 30 Discharge Planning routine Attending Attestation pt seen by Marie Womack MD Nov 19, 2016 09:58
[2016-11-19] MEDS ORDERED: IBUP-232 PO (10:00)
[2016-11-19] MEDS ORDERED: NIFE30TA8 PO (10:00)
--- NOTE | 2016-11-19 10:00 | HHI.DCPOC ---
Discharge Care Plan Your Health Problems Are: Pelvic pain Report Symptoms to Your Doctor -Temperature above 100.5 degrees -Redness, of incision or excessive or foul smelling drainage -Unusual pain or calf pain -Increased vaginal bleeding -Painful or difficulty urinating -Feelings of extreme sadness or anxiety after 2 weeks Goals to Promote Your Health * To prevent worsening of your condition and complications * To maintain your health at the optimal level Directions to Meet Your Goals Take your medications as prescribed Follow your dietary instruction Follow activity as directed Ensure plenty of rest for recovery Drink fluids for hydration Keep your appointments as scheduled Take your immunizations and boosters as scheduled If your symptoms worsen call your PCP, if no PCP go to Urgent Care Center or Emergency Room Smoking is Dangerous to Your Health. Avoid second hand smoke Call the 24-hour crisis hotline for domestic abuse at Marie Smith MD Nov 19, 2016 10:00
== END 2016-11-19 11:44 | disposition home or self-care (01) | DRG 775 ==
LOC: HOBED 02:38 → H2EA 03:44 → H1EA 11-18 12:09
PROVIDERS: ADMIT Obstetrics & Gynecology; ATTEND Obstetrics & Gynecology
PROC: 3E0P7GC Introduction of Other Therapeutic Substance into Female Reproductive, Via Natural or Artificial Opening (ICD-10-PCS; 2016-11-15)
PROC: 10907ZC Drainage of Amniotic Fluid, Therapeutic from Products of Conception, Via Natural or Artificial Opening (ICD-10-PCS; 2016-11-16)
PROC: 00HU33Z Insertion of Infusion Device into Spinal Canal, Percutaneous Approach (ICD-10-PCS; 2016-11-16)
PROC: 3E0R3CZ (ICD-10-PCS; 2016-11-16)
PROC: 10E0XZZ Delivery of Products of Conception, External Approach (ICD-10-PCS; principal; 2016-11-17)
DX: O14.14 Severe pre-eclampsia complicating childbirth (principal); O99.02 Anemia complicating childbirth; D69.6 Thrombocytopenia, unspecified; K21.9 Gastro-esophageal reflux disease without esophagitis; O99.62 Diseases of the digestive system complicating childbirth; O99.824 Streptococcus B carrier state complicating childbirth; D57.3 Sickle-cell trait; Z3A.36 36 weeks gestation of pregnancy; Z37.0 Single live birth
CPT/HCPCS: 51702; 59025; 76816; 76819; 76820; 80053; 80307; 81001; 84157; 84550; 85027; 85461; 86850; 86900; 86901; 87086; 90384; 90715; G0481; J0360; J1200; J2405; J2540; J2590; J2790; J3475; J7120

== ENCOUNTER 2017-04-13 03:51 | Emergency (ER) | payer MEDICAID ==
[~2017-04-13] VITALS: Ht 157.5 cm; Wt 72.0 kg
[~2017-04-13 03:51] MED LIST changes: +CLIN300C5 PO; +IBUP-232 PO; -LABE200T2 PO; +NIFE30TA8 PO
[2017-04-13 03:52] VITALS: BP 170/104; PULSE 84; RESP 16; TEMP 98.1; O2SAT 100
--- NOTE | 2017-04-13 04:12 | PD ---
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 Patient states she has an IUD is sexually active and last period was 04/08/17 and normal for her. Patient denies fever or chills. Patient denies nausea or vomiting. Patient has had dysuria frequency and urgency. Patient denies flank pain or hematuria. Patient rates pain for over 10 in intensity. Patient has taken acetaminophen for symptom relief. Patient denies history of ovarian cysts or endometriosis. PFSH Past Medical History Narrative Medical Negative past medical history nursing notes reviewed ?: Not LMP: 04-08-17 Social History Alcohol Use: No Tobacco Use: No Substance Use: No Allergies-Medications (Allergen,Severity, Reaction): Coded Allergies: No Known Allergies (Unverified Adverse Reaction, Unknown, 04/13/17) Reported Meds & Prescriptions Reported Meds & Active Scripts Active Review of Systems Except as stated in HPI: all other systems reviewed are Neg General / Constitutional: No: Fever, Chills HENT: No: Congestion Cardiovascular: No: Chest Pain or Discomfort Respiratory: No: Shortness of Breath Gastrointestinal: No: Nausea, Vomiting, Abdominal Pain Genitourinary: Positive: Urgency, Frequency, Dysuria, Discharge, No: Flank Pain Musculoskeletal: No: Myalgias, Arthralgias Skin: No Rash Neurologic: No: Weakness Psychiatric: No: Anxiety Hematologic/Lymphatic: No: Lymph Node Enlargement Physical Exam Narrative GENERAL: Well-developed well-nourished female in no acute distress no respiratory distress SKIN: Warm and dry. HEAD: Normocephalic. EYES: No scleral icterus. No injection or drainage. NECK: Supple, trachea midline. No JVD or lymphadenopathy. CARDIOVASCULAR: Regular rate and rhythm without murmurs, gallops, or rubs. RESPIRATORY: Breath sounds equal bilaterally. No accessory muscle use. GASTROINTESTINAL: Abdomen soft, non-tender, nondistended. Pelvic exam: Normal external exam no redness induration or lesions; speculum exam purulent discharge with pink tinged no clots no tissue os appears closed unable to detect IUD string. Bimanual exam cervical motion tenderness without adnexal mass or enlargement. MUSCULOSKELETAL: No cyanosis, or edema. BACK: Nontender without obvious deformity. No CVA tenderness. Data Data Last Documented VS Vital Signs Date Time Temp Pulse Resp B/P (MAP) Pulse Ox O2 Delivery O2 Flow Rate FiO2 04/13/17 03:52 98.1 84 16 170/104 (126) 100 Room Air Orders Orders Gc And Chlamydia Pcr (04/13/17 04:09) Wet Prep Profile (04/13/17 04:09) Urinalysis - C+S If Indicated (04/13/17 04:09) Ed Urine Pregnancytest Poc (04/13/17 04:09) Complete Blood Count With Diff (04/13/17 04:34) Basic Metabolic Panel (Bmp) (04/13/17 04:34) Ct Abd/Pel W Iv Contrast(Rout) (04/13/17 ) Ketorolac Inj (Toradol Inj) (04/13/17 04:45) Iohexol 350 Inj (Omnipaque 350 Inj) (04/13/17 05:28) Azithromycin Powd Pack (Zithromax Powd P (04/13/17 05:45) Ceftriaxone Inj (Rocephin Inj) (04/13/17 05:45) Ed Discharge Order (04/13/17 06:17) Labs Laboratory Tests Test 04/13/17 04:13 04/13/17 04:40 Urine Color YELLOW Urine Turbidity HAZY Urine pH 7.0 Urine Specific Welch 1.014 Urine Protein NEG mg/dL Urine Glucose (UA) NEG mg/dL Urine Ketones NEG mg/dL Urine Occult Blood TRACE Urine Nitrite NEG Urine Bilirubin NEG Urine Urobilinogen LESS THAN 2.0 MG/DL Urine Leukocyte Esterase MOD Urine RBC 1 /hpf Urine WBC 2 /hpf Urine Squamous Epithelial Cells 15 /hpf Urine Bacteria RARE /hpf Urine Hyaline Casts 1 /lpf Urine Mucus FEW /lpf Microscopic Urinalysis Comment CULT NOT INDICATED Clue Cells (Wet Prep) PRESENT Vaginal Trichomonas (Wet Prep) NONE SEEN Vaginal Yeast (Wet Prep) NONE SEEN Chlamydia trachomatis DNA (PCR) NOT DETECTED Neisseria gonorrhoeae DNA (PCR) NOT DETECTED White Blood Count 5.0 TH/MM3 Red Blood Count 4.12 MIL/MM3 Hemoglobin 10.6 GM/DL Hematocrit 32.2 % Mean Corpuscular Volume 78.0 FL Mean Corpuscular Hemoglobin 25.7 PG Mean Corpuscular Hemoglobin Concent 33.0 % Red Cell Distribution Width 19.1 % Platelet Count 204 TH/MM3 Mean Platelet Volume 9.3 FL Neutrophils (%) (Auto) 52.5 % Lymphocytes (%) (Auto) 35.1 % Monocytes (%) (Auto) 11.0 % Eosinophils (%) (Auto) 0.8 % Basophils (%) (Auto) 0.6 % Neutrophils # (Auto) 2.6 TH/MM3 Lymphocytes # (Auto) 1.7 TH/MM3 Monocytes # (Auto) 0.5 TH/MM3 Eosinophils # (Auto) 0.0 TH/MM3 Basophils # (Auto) 0.0 TH/MM3 CBC Comment DIFF FINAL Differential Comment Blood Urea Nitrogen 12 MG/DL Creatinine 0.76 MG/DL Random Glucose 89 MG/DL Calcium Level 8.7 MG/DL Sodium Level 141 MEQ/L Potassium Level 3.7 MEQ/L Chloride Level 109 MEQ/L Carbon Dioxide Level 27.0 MEQ/L Anion Gap 5 MEQ/L Estimat Glomerular Filtration Rate 104 ML/MIN MDM Medical Decision Making Medical Screen Exam Complete: Yes Emergency Medical Condition: Yes Medical Record Reviewed: Yes Interpretation(s) poc hcg: negative CBC & BMP Diagram 04/13/17 04:40 Calcium Level 8.7 Vital Signs Date Time Temp Pulse Resp B/P (MAP) Pulse Ox O2 Delivery O2 Flow Rate FiO2 04/13/17 03:52 98.1 84 16 170/104 (126) 100 Room Air Wet prep positive clue cells Differential Diagnosis Dysuria, UTI, pyelonephritis, appendicitis, ruptured ovarian cysts, ovarian torsion, ectopic , PID, tubo-ovarian abscess, I&D uterine wall perforation, musculoskeletal pain Narrative Course Specimens collected and sent for resulting pelvic exam performed Lab values resulted patient sent for CT CT resulted shows IUD to be in place and no acute inflammatory changes no free fluid bilateral ovarian cysts Patient reports she is clinically improved stable for outpatient management and follow-up with [facility] Diagnosis Primary Impression: Pelvic pain in female Additional Impressions: Ovarian cyst Bacterial vaginosis 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
[2017-04-13 04:41] LABS: BACTERIA, URINE RARE /hpf; BILIRUBIN, URINE NEG (NEG); BLOOD, URINE TRACE (NEG); GLUCOSE,URINE NEG (NEG); HYALINE CAST, URINE 1 /lpf (RARE); KETONE, URINE NEG (NEG); MUCUS URINE FEW /lpf (OCC); NITRITE,URINE NEG (NEG); SQUAMOUS EPITHELIAL CELL URINE 15 /hpf (0-5); URINE COLOR YELLOW (YELLW/STRAW); URINE LEUKOCYTE ESTERASE MOD (NEG)
[2017-04-13] MEDS ORDERED: KETOROLAC TROMETHAMINE 30 MG/ML (IVP) VIAL IV PUSH ONE (04:45)
[2017-04-13 04:56] LABS: AUTOMATED NEUTROPHIL # 2.6 TH/MM3 (1.8-7.7); BASOPHIL % 0.6 % (0.0-2.0); EOSINOPHIL % 0.8 % (0.0-4.0); HEMATOCRIT 32.2 % (35.0-46.0); HEMOGLOBIN 10.6 GM/DL (11.6-15.3); LYMPH % 35.1 % (9.0-44.0); LYMPHOCYTE # 1.7 TH/MM3 (1.0-4.8); MEAN CORPUSCULAR HEMOGLOBIN 25.7 PG (27.0-34.0); MEAN PLATELET VOLUME 9.3 FL (7.0-11.0); MONOCYTE # 0.5 TH/MM3 (0-0.9); NEUT % 52.5 % (16.0-70.0); PLATELET COUNT 204 TH/MM3 (150-450); RED BLOOD COUNT 4.12 MIL/MM3 (4.00-5.30); RED CELL DISTRIBUTION WIDTH 19.1 % (11.6-17.2)
[2017-04-13 05:09] LABS: CALCIUM 8.7 MG/DL (8.5-10.1); CREATININE 0.76 MG/DL (0.50-1.00)
[2017-04-13] MEDS ORDERED: IOHEXOL 350 MG/ML 10 ML VIAL (for RAD DIAG) IVCONTRAST ONE (05:28)
[2017-04-13] MEDS ORDERED: cefTRIAXone INJ 1,000 MG in SODIUM CHLORIDE 0.9% INJ 100 ML IV ONE (05:45)
[2017-04-13] MEDS ORDERED: AZITHROMYCIN PWD FOR SUSP 1 GM PACKET PO ONE (05:45)
--- NOTE | 2017-04-13 06:14 | RADRPT ---
EXAM DATE/TIME: 04/13/2017 05:11 [facility] COMPARISON: No previous studies available for comparison. INDICATIONS : Lower quadrant pain. Patient states pain started since getting IUD placed 3 months ago. IV CONTRAST: 100 cc Omnipaque 350 (iohexol) IV ORAL CONTRAST: No oral contrast ingested. RADIATION DOSE: 6.92 CTDIvol (mGy) MEDICAL HISTORY : None SURGICAL HISTORY : None. ENCOUNTER: Initial ACUITY: 3 months PAIN SCALE: 10/10 LOCATION: Bilateral lower quadrant TECHNIQUE: Volumetric scanning of the abdomen and pelvis was performed. Using automated exposure control and ad justment of the mA and/or kV according to patient size, radiation dose was kept as low as reasonably achievable to obtain optimal diagnostic quality images. DICOM format image data is available electro nically for review and comparison. FINDINGS: LOWER LUNGS: The visualized lower lungs are clear. LIVER: Homogeneous density without lesion. There is no dilation of the biliary tree. No calcified gallston es. SPLEEN: Normal size without lesion. PANCREAS: Within normal limits. KIDNEYS: Normal in size and shape. There is no mass, stone or hydronephrosis. ADRENAL GLANDS: Within normal limits. VASCULAR: There is no aortic aneurysm. BOWEL/MESENTERY: The stomach, small bowel, and colon demonstrate no acute abnormality. There is no free intraperitone al air or fluid. ABDOMINAL WALL: Within normal limits. RETROPERITONEUM: There is no lymphadenopathy. BLADDER: No wall thickening or mass. REPRODUCTIVE: Intrauterine device in good position. Slightly less than 4 cm bilobed cystic process in the left adne xal region and 2.3 cm cyst in the right ovary. No evidence of free pelvic fluid. INGUINAL: There is no lymphadenopathy or hernia. MUSCULOSKELETAL: Within normal limits for patient age. CONCLUSION: Bilateral adnexal cysts. No other acute CT findings in the abdomen or pelvis. Ismael Leo MD on April 13, 2017 at 6:07 Board Certified Radiologist. This report was verified electronically.
[2017-04-13] MEDS ORDERED: METR0.7528 VAGINAL (06:20)
[2017-04-13] MEDS ORDERED: NAPR5TAB5 PO (06:20)
== END 2017-04-13 06:41 | disposition home or self-care (01) ==
LOC: NEPC 03:51
DX: R10.2 Pelvic and perineal pain (principal); N83.209 Unspecified ovarian cyst, unspecified side; N76.0 Acute vaginitis; B96.89 Other specified bacterial agents as the cause of diseases classified elsewhere; R30.0 Dysuria
CPT/HCPCS: 74177; 80048; 81001; 84703; 85025; 87210; 87491; 87591; 96365; 96375; 99285; J0696; J1885; Q9967

== ENCOUNTER 2017-09-10 11:54 | Emergency (ER) | payer MEDICAID, OTHER ==
[~2017-09-10] VITALS: Ht 154.9 cm; Wt 70.0 kg
[~2017-09-10 11:54] MED LIST changes: -CLIN300C5 PO; -IBUP-232 PO; +METR0.7528 VAGINAL; +NAPR5TAB5 PO; -NIFE30TA8 PO
[2017-09-10 12:35] VITALS: BP 162/92; PULSE 77; RESP 20; TEMP 98.2; O2SAT 100
== END 2017-09-10 13:45 | disposition left against medical advice (07) ==
LOC: NED 11:54
DX: K08.89 Other specified disorders of teeth and supporting structures (principal)
CPT/HCPCS: 99281